=== PATIENT | female | born 1980 | race Caucasian/White ===

== ENCOUNTER 2016-07-22 15:20 | Emergency (ER) | payer MEDICAID | END 2016-07-22 20:14 | disposition home or self-care (01) | LOC: ER 15:20 | DX: O20.0 Threatened abortion (principal); Z32.01 Encounter for pregnancy test, result positive; Z79.899 Other long term (current) drug therapy; F17.210 Nicotine dependence, cigarettes, uncomplicated | CPT/HCPCS: 36415; 76817; 80053; 84702; 85025; 86901 ==